=== PATIENT | male | born 1975 | race Caucasian/White ===

== ENCOUNTER → 2020-11-24 | Day surgery (SDC) | payer MEDICARE, OTHER ==
[~2020-11-24] VITALS: Ht 188 cm; Wt 109.0 kg
[~2020-11-24] MED LIST: DEPAKOTE500 MG PO; INVEGA1.5 MG PO; KEPPRA1000 MG PO; VIMPAT200 MG PO
[2020-11-24 08:35] LABS: EOSINOPHIL 4.6 % (0-5); HCT 39.5 % (42.0-52.0); HGB 13.5 g/dl (13.2-18.0); MCH 33.7 pg (25.0-31.0); MCHC 34.2 g/dL (32.0-36.0); MCV 98.5 fL (78.0-100.0); MONOCYTE 10.7 % (0-12); MPV 9.9 fL (6.0-9.5); NEUTROPHIL 40.5 % (41-80); NRBC 0; PLT 223 K/uL (150-400); RBC 4.01 M/uL (4.70-6.00); RDW 13.2 % (11.5-14.0); WBC 5.9 K/uL (4.0-10.5)
[2020-11-24 09:11] LABS: ALBUMIN 3.3 g/dL (3.4-5.0); BILIRUBIN - TOTAL 0.3 mg/dL (0.2-1.0); BUN/CREAT RATIO (CALC) 13.5 RATIO; CREATININE 0.74 mg/dL (0.67-1.17); GLOBULIN (CALCULATION) 3.1 g/dL; POTASSIUM 3.9 mmol/L (3.5-5.1); TOTAL PROTEIN 6.4 g/dL (6.4-8.2)
== END | disposition home or self-care (01) ==
LOC: FAS 10-16 09:45
PROVIDERS: Oral & Maxillofacial Surgery
DX: K04.7 Periapical abscess without sinus (principal); K02.9 Dental caries, unspecified; G40.909 Epilepsy, unspecified, not intractable, without status epilepticus; F09 Unspecified mental disorder due to known physiological condition; S09.90XA Unspecified injury of head, initial encounter; Z79.899 Other long term (current) drug therapy
CPT/HCPCS: D7140; D7210; 36415; 71045; 80053; 85025; 93005; J1100; J2250; J2405; J2704; J3010; J7120